=== PATIENT | male | born 1990 | race Two or more races ===

== ENCOUNTER 2019-09-05 01:09 | Emergency (ER) | payer OTHER ==
[~2019-09-05] VITALS: Ht 170.2 cm; Wt 95.3 kg
--- NOTE | 2019-09-05 01:10 | NUR ---
PT BIBRA C/O NECK PAIN, L FOOT AND CALF PAIN FOLLOWING REAR-END COLLISION. -SB,-KO. PT AXO4. RESPIRATIONS EVEN AND UNLABORED. PT PUT ON THE MACHINE TRACER AND PULSE OX. PENDING EVAL FROM [facility].
[2019-09-05 04:10] VITALS: BP 140/76
--- NOTE | 2019-09-05 04:10 | NUR ---
Patient discharged to home in stable condition. Written and verbal after care instructions given. Patient verbalizes understanding of instruction.
== END 2019-09-05 04:11 | disposition home or self-care (01) ==
LOC: ER 01:11
DX: M54.5 Low back pain (principal); M54.2 Cervicalgia; M79.662 Pain in left lower leg; F17.200 Nicotine dependence, unspecified, uncomplicated; V49.49XA Driver injured in collision with other motor vehicles in traffic accident, initial encounter; Y93.89 Activity, other specified; Y92.488 Other paved roadways as the place of occurrence of the external cause; Y99.8 Other external cause status
CPT/HCPCS: 72110-TC; 72125-TC; 73590-TC